=== PATIENT | male | born 2000 | race Caucasian/White ===

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

== ENCOUNTER 2023-05-17 07:56 | Inpatient (IN) | payer BC, SELFPAY ==
[2016-01-31 13:13] VITALS: O2SAT 94
[2023-05-17] VITALS (40 sets, daily range): BP systolic 104–162; BP diastolic 53–102; PULSE 55–95; RESP 6–29; TEMP 36.2–37.1; O2SAT 96–99
--- NOTE | 2023-05-17 08:15 | DI.CT_ITS ---
Exam(s) CT HEAD ORBITS WO/W EXAM: CT HEAD ORBITS WO/W CLINICAL HISTORY: Facial swelling, R/O orbital cellulitis. TECHNIQUE: Imaging Protocol: Axial computed tomography images with coronal and sagittal reformatted images were created and reviewed. 100 mL Omnipaque 350 IV. COMPARISON: No exams were available for comparison FINDINGS: CT Head: Ventricles and Extra axial spaces: Normal in size and morphology for the patient's age. Hemorrhage: None. Cerebral parenchyma: Normal. Midline shift: None. Brainstem/Cerebellum: Normal. Calvarium: Normal. Visualized Paranasal sinuses: Significant opacification both maxillary sinuses well as multiple ethmo id sinuses and sphenoid sinus. Frontal sinuses are diminutive. Mastoid air cells: Clear. Soft Tissues: Unremarkable. Bones: Unremarkable. No bony destruction. Vasculature: No growth evidence of aneurysm or vascular occlusion. No abnormal enhancing lesions in the brain. CT Face: Facial Bones: No fracture is noted in facial bones. Sinuses and Mastoids: Significant opacification both maxillary sinuses well as multiple ethmoid sinu ses and sphenoid sinus. Frontal sinuses are diminutive. Globes, extraocular muscles, optic nerves and retrobulbar fat: Normal. Upper aerodigestive tract: Normal. Mandible and bilateral temporomandibular joints: Normal. Soft tissues: Diffuse swelling around both orbits. No localized fluid collection or abscess. IMPRESSION: 1. No acute intracranial process. 2. Bilateral periorbital soft tissue swelling. No abscess or abnormal gas collection. No intraorbit al abnormality. 3. severe chronic sinus disease. RADIATION DOSE DELIVERED: 2,160.56mGy.cm Total DLP DATA REPOSITORY: All CT scans at this facility are submitted to the National Radiology Data Registry (NRDR) Dose Index Registry (DIR) with the [employer] (ACR). RADIATION OPTIMIZATION: All CT scans at this facility use at least one of these dose optimization te chniques: automated exposure control; mA and/or kV adjustment per patient size (includes targeted exa ms where dose is matched to clinical indication); or iterative reconstruction.
--- NOTE | 2023-05-17 08:19 | W.ED.GENAD ---
Discharge Plan Disposition Patient Disposition: Admit to [facility] Condition: Improving Discharge Details Clinical Impression: Cellulitis of face, Preseptal cellulitis of left eye, Preseptal cellulitis of right eye Admit Date/Time: 05/17/23 11:59 Admit Provider: Helen Tripp Attending Provider: Helen Tripp Primary Care Provider: Roxana Jacobsen ED Provider: Nguyen Montero Discharge Data Discharge Date/Time-TO BE ENTERED AT DEPARTURE: 05/17/23 15:18 Medical Decision Making <Nguyen Montero NP - Last Filed: 05/17/23 14:17> 23 year old Male presents to the chief complaint of facial swelling, rash worsening over the last 4 to 5 days. He has been on doxycycline for the last 2 days. Started with a lesion on his nose. He is unable to complete appointment in his eye. He also has a lesion in between the web of his 3rd and 4th finger. He denies any fever, chills or myalgias. Denies N/V/D. He does have periorbital swelling to the point he is unable to open his eyes. Differential Diagnosis includes but not limited to Facial Cellulitis, Orbital cellulitis, Allergic reaction, Impetigo, Lactate slightly elevated at 1.8, white blood count 11.9 neutrophils 6.26, AST 54 ALT 25, CT shows no evidence of orbital cellulitis or abscess, does have extensive Sinusitis. Will discuss option for admission with patient and family. Past medication. Offered admission to patient and family at this time. Patient opted to be discharged home. I did discuss strict return instructions and to return with any worsening anytime. Patient's swelling has improved since he has been here. He is able to open also has hands at this time. We will add Bactrim to his antibiotic regimen. I will encourage him to continue taking the doxycycline and applying the Mupirocin ointment. This text was generated using [employer]Shareation system, please disregard any oddities of phrase or misspellings. After further conversation patient is agreeable to admission. Will contact hospitalist. [phone]: Hospitalist paged. [phone]: Spoke with Dr. Tripp who agrees to accept patient for admission. Patient awaiting bed assignment. Boarding at this time. Admission orders placed. Medical Records Medical records reviewed: Yes I reviewed the patient's medical records. Imaging Data Radiologic Study: Imaging: CT Scan Radiologist's impression: CT Head: Ventricles and Extra axial spaces: Normal in size and morphology for the patient's age. Hemorrhage: None. Cerebral parenchyma: Normal. Midline shift: None. Brainstem/Cerebellum: Normal. Calvarium: Normal. Visualized Paranasal sinuses: Significant opacification both maxillary sinuses well as multiple ethmoid sinuses and sphenoid sinus. Frontal sinuses are diminutive. Mastoid air cells: Clear. Soft Tissues: Unremarkable. Bones: Unremarkable. No bony destruction. Vasculature: No growth evidence of aneurysm or vascular occlusion. No abnormal enhancing lesions in the brain. CT Face: Facial Bones: No fracture is noted in facial bones. Sinuses and Mastoids: Significant opacification both maxillary sinuses well as multiple ethmoid sinuses and sphenoid sinus. Frontal sinuses are diminutive. Globes, extraocular muscles, optic nerves and retrobulbar fat: Normal. Upper aerodigestive tract: Normal. Mandible and bilateral temporomandibular joints: Normal. Soft tissues: Diffuse swelling around both orbits. No localized fluid collection or abscess. IMPRESSION: 1. No acute intracranial process. 2. Bilateral periorbital soft tissue swelling. No abscess or abnormal gas collection. No intraorbital abnormality. 3. severe chronic sinus disease. Lab Data Lab results reviewed: Yes I reviewed the patient's lab results. Labs: 05/17/23 08:45 Blood Blood Culture - Pending 05/17/23 08:30 Hand - Right Wound Culture - Pending 05/17/23 08:30 Hand - Right Gram Stain - Pending 05/17/23 08:36 Blood Blood Culture - Pending Laboratory Tests Range/Units 05/17/23 05/17/23 05/17/23 08:36 08:36 08:36 WBC (4.4-10.8) 10^3/uL 11.26 H RBC (4.36-5.78) 10^6/uL 5.25 Hgb (13.5-17.5) g/dL 15.5 Hct (40.0-50.0) % 44.9 MCV (80-95) fL 86 MCH (27.0-33.0) pg 29.5 MCHC (32.0-36.0) % 34.5 RDW (11.8-14.1) % 13.0 Plt Count (130-400) 10^3/uL 319 MPV (8.0-11.0) fL 10.0 Immature Gran % 0.3 Neutrophils % 55.6 Lymphocytes % 27.7 Monocytes % 8.0 Eosinophils % 7.4 Basophils % 1.0 Nucleated RBC % (0.0-0.3) % 0.0 Absolute Neutrophils (1.2-6.7) 10^3/uL 6.26 Absolute Lymphocytes (1.2-3.4) 10^3/uL 3.12 Absolute Monocytes (0.1-0.8) 10^3/uL 0.90 H Absolute Eosinophils (0.0-0.7) 10^3/uL 0.83 H Absolute Basophils (0.0-0.2) 10^3/uL 0.11 VBG Lactate (0.6-1.4) mmol/L 1.8 H Sodium (136-145) mmol/L 137 Potassium (3.5-5.1) mmol/L 3.8 Chloride (98-107) mmol/L 103 Carbon Dioxide (21.0-32.0) mmol/L 25.3 Anion Gap (3-11) mmol/L 8.7 BUN (7-18) mg/dL 10 Creatinine (0.70-1.30) mg/dL 0.9 Est GFR (CKD-EPI 2020) (mL/min/1.73m2) 123.84 Glucose (74-106) mg/dL 123 H Calcium (8.5-10.1) mg/dL 9.7 Total Bilirubin (0.2-1.0) mg/dL 0.4 AST (15-37) U/L 54 H ALT (16-63) U/L 125 H Alkaline Phosphatase (46-116) U/L 97 Total Protein (6.4-8.2) g/dL 7.6 Albumin (3.4-5.0) g/dL 3.7 <Sherwin Peñaloza MD - Last Filed: 05/18/23 12:34> Date: 05/17/23 Time: 09:54 Note: Patient seen, examined, and discussed with NAZARIO Montero. Unlikely deep space infection. I am concerned that with rapid progression of facial cellulitis and now cellulitis of his right hand despite doxycycline treatment. Patient has known allergy to cephalexin which does limit antibiotic options. Patient has had similar less severe facial infection in the past. We will attempt obtain records from [facility]. Labs reviewed and leukocytosis noted with mild elevation of lactic acid. Patient is hemodynamically stable. 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 HPI <Nguyen Montero NP - Last Filed: 05/17/23 14:17> General Mode of arrival: ambulatory. Date/Time Provider Initiated Documentation: 05/17/23 07:58. Limitations to Documentation: no limitations. Information obtained by: patient, RN notes reviewed and old records reviewed. HPI Narrative: 23 year old Male presents to the chief complaint of facial swelling, rash worsening over the last 4 to 5 days. He has been on doxycycline for the last 2 days. Started with a lesion on his nose. He is unable to complete appointment in his eye. He also has a lesion in between the web of his 3rd and 4th finger. He denies any fever, chills or myalgias. Denies N/V/D. He does have periorbital swelling to the point he is unable to open his eyes. Related Data Home Medications Medication Instructions Recorded Confirmed cetirizine 10 mg capsule (Zyrtec) 10 mg PO DAILY PRN #30 tabs 10/02/14 12/02/20 doxycycline hyclate 100 mg capsule 100 mg PO BID 05/17/23 05/17/23 mupirocin 2 % topical ointment 1 applic topical DAILY 05/17/23 05/17/23 sulfamethoxazole 800 1 tab PO BID 10 days #20 tabs 05/17/23 mg-trimethoprim 160 mg tablet (Bactrim DS) Previous Rx's Medication Instructions Recorded sulfamethoxazole 800 1 tab PO BID 10 days #20 tabs 05/17/23 mg-trimethoprim 160 mg tablet (Bactrim DS) Allergies Allergy/AdvReac Type Severity Reaction Status Date / Time cephalexin Allergy Mild itchy rash Verified 05/17/23 08:05 General Stated Complaint: FacialProb GENA: 3 Review of Systems <Nguyen Montero NP - Last Filed: 05/17/23 14:17> All systems reviewed & are unremarkable except as noted in HPI and below Constitutional Constitutional: Reports as per HPI Integumentary/Breasts Skin/Breast: Reports as per HPI, Reports pruritus, Reports erythema, Reports rash, Reports skin pain, Reports skin swelling and Reports sores PFSH <Nguyen Montero NP - Last Filed: 05/17/23 14:17> All Active Problems (Updated 05/17/23 @ 19:57 by Gwendolyn Velez APRN) Sinusitis (Acute) Transaminitis (Acute) Lactic acidosis (Acute) Discharge planning issues (Acute) Cellulitis of face (Acute) Preseptal cellulitis of left eye (Acute) Preseptal cellulitis of right eye (Acute) Erysipelas (Acute) Left otitis externa (Acute) Right ankle sprain (Acute 04/21/20) Anxiety (Acute 06/21/16) BMI (body mass index) pediatric, > 99% for age, 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, tertiary care intervention (Acute 04/19/14) Cough (Acute 04/19/14) 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 Routine child health exam (Acute 05/02/12) Routine child health exam (Acute 06/21/16) Medical History 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 Appears stated age. Normal body habitus. Head: Normocephalic, no trauma. Eyes: Periorbital swelling and erythema, with yellow crusted lesions to multiple areas including mouth, nose and right cheeks, ENT: Bilateral TM's WNL, External ear normal to inspection, no mastoid TTP, swelling, or erythema, nasal turbinates boggy. Normal dentition, Posterior pharynx WNL, no exudate. Chest: RRR, Normal S1, S2, distal pulses intact. Resp: Lungs clear to auscultation bilaterally, no wheezes, rales, or rhonchi. Abdomen: Soft, non-distended, Normoactive bowel sounds all 4 quads. Musculoskeletal: Normal gait, 5/5 strength to all four extremities. Skin: A lesion noted to right hand with surrounding swelling noted. Capillary refill less than 2 sec. Neurologic: Cranial nerves II-XII intact. Alert and oriented x 3. Motor: No deficits noted. Sensory: Intact bilaterally all 4 extremities. Reflexes: DTR's intact bilaterally.. Hematologic/Lymphatic: No ecchymosis, no lymphadenopathy. Course <Nguyen Montero NP - Last Filed: 05/17/23 14:17> Vital Signs Vital signs: Vital Signs Temperature 36.7 C 05/17/23 08:01 Pulse 78 05/17/23 08:01 Respiratory Rate 16 05/17/23 08:01 Blood Pressure 162/78 H 05/17/23 08:01 Pulse Oximetry 98 05/17/23 08:01 Temperature 36.7 C 05/17/23 08:01 Temperature Source Temporal Artery Scan 05/17/23 08:01 Pulse 78 05/17/23 08:01 Respiratory Rate 16 05/17/23 08:01 Respiratory Effort Normal 05/17/23 08:03 Blood Pressure 162/78 H 05/17/23 08:01 Blood Pressure Position Sitting 05/17/23 08:01 Pulse Oximetry 98 05/17/23 08:01 Oxygen Delivery Method Room Air 05/17/23 08:01 Oxygen Flow Rate 0 05/17/23 08:01 Pain Level 5 05/17/23 08:04 Lab/Test Results Lab/Test Results: 05/17/23 08:16 Blood Blood Culture - Pending 05/17/23 08:16 Blood Blood Culture - Pending
[2023-05-17 08:43] LABS: Lactate 1.8 mmol/L (0.6-1.4)
[2023-05-17 08:44] LABS: Abs Immature Grans 0.03 10^3/uL (0.0-0.06); Absolute Basophil Count 0.11 10^3/uL (0.0-0.2); Absolute Eosinophil Count 0.83 10^3/uL (0.0-0.7); Absolute Lymphocyte Count 3.12 10^3/uL (1.2-3.4); Eosinophils % 7.4; HCT 44.9 % (40.0-50.0); HGB 15.5 g/dL (13.5-17.5); Immature Grans % 0.3; Lymphocytes % 27.7; MCH 29.5 pg (27.0-33.0); MCHC 34.5 % (32.0-36.0); MCV 86 fL (80-95); Neutrophils % 55.6; Platelet Count 319 10^3/uL (130-400); RBC 5.25 10^6/uL (4.36-5.78); RDW-SD 39.7 fL; WBC 11.26 10^3/uL (4.4-10.8)
[2023-05-17 08:45] LABS: Absolute Neutrophil Count 6.26 10^3/uL (1.2-6.7)
[2023-05-17] MEDS: Normal Saline 1,000 ML 1000 ML IV (08:57)
[2023-05-17] MEDS: CLINDAMYCIN 600 MG/50 ML BAG 100 MG IVPB (08:57)
[2023-05-17 09:01] LABS: ALT 125 U/L (16-63); AST 54 U/L (15-37); Albumin 3.7 g/dL (3.4-5.0); Alkaline Phosphatase 97 U/L (46-116); Anion Gap 8.7 mmol/L (3-11); BUN 10 mg/dL (7-18); Bilirubin, Total 0.4 mg/dL (0.2-1.0); CO2 25.3 mmol/L (21.0-32.0); CREATININE 0.9 mg/dL (0.70-1.30); Calcium 9.7 mg/dL (8.5-10.1); Chloride 103 mmol/L (98-107); Estimated GFR 123.84 (mL/min/1.73m2); Glucose 123 mg/dL (74-106); Potassium 3.8 mmol/L (3.5-5.1); Sodium 137 mmol/L (136-145); Total Protein 7.6 g/dL (6.4-8.2)
[2023-05-17] MEDS: Omnipaque 350 MG/ML 500 ML BTL-Imaging package IJ (09:27)
[2023-05-17] MEDS: Normal Saline - Diluent 50 ML VIAL IJ (09:27)
[2023-05-17] MEDS: Normal Saline Flush 10 ML SYR IVP (09:30)
[2023-05-17 10:29] LABS: Bilirubin Negative (Negative); Blood Negative (Negative); Clarity Clear (Clear); Glucose Negative (Negative); Ketones Negative (Negative); Leukocyte Esterase Negative (Negative); Nitrite Negative (Negative); Urobilinogen 0.2 mg/dL (Up to 0.2)
[2023-05-17] MEDS: Sulfameth/Trimeth DS TAB 1 TAB PO (10:50)
[2023-05-17] MEDS: cefTRIAXone 2 GM/50 ML BAG IVPB (13:35)
[2023-05-17] MEDS: LINEZOLID 600 MG/300 ML BAG 300 MG IVPB ×2 (13:44→23:14)
[2023-05-17 15:16] LABS: Source Nasal/Nares
[2023-05-17 15:47] LABS: COVID-19 PCR Negative (Negative)
--- NOTE | 2023-05-17 18:24 | W.PM.HP.N ---
Date of service: 05/17/23 Time of Service: 11:55 Assessment and Plan Assessment and plan (1) Preseptal cellulitis of left eye: Status: Acute Assessment and plan: We will Start Ceftriaxone 2gm IV every 24 hours and Zyvox 600 mg IV every 12 hours Pain management Acetaminophen 650 mg every 4 hours as needed Repeat inflammatory markers in AM. CBC in AM BMP in AM (2) Preseptal cellulitis of right eye: Status: Acute Assessment and plan: As above (3) Sinusitis: Status: Acute Assessment and plan: As per CT scan Antibiotics ordered as above (4) Lactic acidosis: Status: Acute Assessment and plan: Lactate is 1.8, afebrile We will order IVF Antibiotics as above (5) Transaminitis: Status: Acute Assessment and plan: Elevated LFT's We will check hepatitis studies and order a limited of the RUQ od the abdomen US LFT's in AM (6) Discharge planning issues: Status: Acute Assessment and plan: The patient is independent and does not seem to have any discharge need at this time. Care management will monitor for change in need for discharge The patient has minimal risk 0-3 points on DVT prophylaxis is not indicated History of Present Illness History of Present Illness Chief Complaint: Face swelling and rash Narrative: The 23 yo male with a history of herpetic lesion is childhood 10 years ago to left cheek, facial cellulitis 2 years ago and impetigo to the left nostril treated with bactroban and oral doxycycline 2 days ago presented to the ED at [facility] today with bilateral periorbital swelling and rash to his face . When seen, the patient was unable to open his eyes and also had a lesion to his left hand between his 3 rd and 4th digit which was swabbed and came back positive for gram positive namrata, gram positive cocci and gram negative rods. Blood culture results are pending. The CT of the head and face showed no acute intracranial process, bilateral soft tissue swelling. NO abscess or gas collection, no intraorbital abnormalit seen but shows severe chronic sinus disease.WBC was 11.26, chemistry was unremarkable except for lactate 1.8 and increased LFT's.He denied fever, headache, pain, difficulty breathing, nausea, vomiting, chest pain. He reports blurred vision in his right eyes that is completely closed.The patient received IV clindamycin and oral bactrim as well as methylprednisolone IV in the ED. The hsopitalist was consulted and the patient was admitted to the medical surgical floor as an inpatient for treatment and management of bilateral periorbital cellulitis. Review of Systems Constitutional Constitutional: Reports as per HPI, Denies body ache(s), Denies chills, Denies excessive sweating, Denies fever(s) and Denies headache(s) Eyes Eyes: Reports blurry vision, Reports change in vision, Reports eye discharge, Reports dry eyes, Reports irritation and Denies loss of vision ENT Ears, Nose, Mouth, and Throat: Reports system reviewed and no additional complaints, except as documented, Denies change in voice, Denies dysphagia, Denies dizziness, Denies otalgia, Denies facial pain, Denies headache(s), Denies epistaxis, Denies nasal congestion, Denies nasal discharge, Denies nasal obstruction, Denies neck pain, Denies nose pain and Denies odynophagia Cardiovascular Cardiovascular: Reports system reviewed and no additional complaints, except as documented, Denies chest pain, Denies chest pain at rest and Denies chest pain with activity Respiratory Respiratory: Reports system reviewed and no additional complaints, except as documented, Denies chest congestion and Denies cough Gastrointestinal Gastrointestinal: Denies abdominal pain, Denies dysphagia and Denies odynophagia Genitourinary Genitourinary: Reports system reviewed and no additional complaints, except as documented and Denies difficulty urinating Musculoskeletal Musculoskeletal: Reports system reviewed and no additional complaints, except as documented, Denies back pain, Denies myalgias, Denies arthralgias and Denies neck pain Integumentary/Breasts Skin/Breast: Reports system reviewed and no additional complaints, except as documented Neurologic Neurologic: Reports system reviewed and no additional complaints, except as documented, Denies dizziness, Denies headache(s) and Denies loss of vision Psychiatric Psychiatric: Reports system reviewed and no additional complaints, except as documented Endocrine Endocrine: Reports system reviewed and no additional complaints, except as documented, Reports change in body appearance and Denies excessive sweating Hematologic/Lymphatic Hematologic/Lymphatic: Reports system reviewed and no additional complaints, except as documented and Reports as per HPI Allergic/Immunologic Allergic/Immunologic: Reports system reviewed and no additional complaints, except as documented and Reports other (rash and peroorbital swelling) PFSH All Active Problems (Updated 10/03/23 @ 19:57 by Gwendolyn Velez APRN) Sinusitis (Acute) Transaminitis (Acute) Lactic acidosis (Acute) Discharge planning issues (Acute) Cellulitis of face (Acute) Preseptal cellulitis of left eye (Acute) Preseptal cellulitis of right eye (Acute) Erysipelas (Acute) Left otitis externa (Acute) Right ankle sprain (Acute 04/21/20) Anxiety (Acute 06/21/16) BMI (body mass index) pediatric, > 99% for age, 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, tertiary care intervention (Acute 04/19/14) Cough (Acute 04/19/14) 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 Routine child health exam (Acute 05/02/12) Routine child health exam (Acute 06/21/16) Medical History 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 Meds Allergies and Home Medications Allergies Allergy/AdvReac Type Severity Reaction Status Date / Time cephalexin Allergy Mild itchy rash Verified 05/17/23 08:05 Home Medications Medication Instructions Recorded Confirmed Type cetirizine 10 mg capsule (Zyrtec) 10 mg PO DAILY PRN #30 tabs 10/02/14 12/02/20 History doxycycline hyclate 100 mg capsule 100 mg PO BID 05/17/23 05/17/23 History mupirocin 2 % topical ointment 1 applic topical DAILY 05/17/23 05/17/23 History sulfamethoxazole 800 1 tab PO BID 10 days #20 tabs 05/17/23 Rx mg-trimethoprim 160 mg tablet (Bactrim DS) Exam Const General: cooperative, comfortable and no acute distress Orientation: alert, awake and oriented x3 Limitations: mental status not altered HENMT Head: normal to inspection and normocephalic Face and sinus: erythema bilaterally periorbital, mandible, lower lip and chin and edema bilaterally periorbital Eyes General: dysmorphic (right swelling> left) Conjunctivae: conjunctivae normal (not hemorrhagic,difficulty assessing) Sclera: sclerae normal (difficulty opening the eyes) Neck Neck: normal visual inspection Chest Chest: normal inspection of the chest Resp Effort & Inspection: normal respiratory effort and not labored Auscultation: clear to auscultation bilaterally Cardio Jugular venous pressure: no JVD Rhythm: regular rhythm Heart Sounds: S1 normal and S2 normal Pulses: radial pulses present and dorsalis pedis present GI Inspection: obesity Palpation: soft and nontender Skin Lesions: lesion noted (bilateral periorbital, right chin, left nostril ) Rashes: rashes noted (bilateral periorbital, right chin, left nostril) Neuro General: patient alert, patient awake, patient oriented x3 and no focal motor deficits Cognition: normal cognition Speech: speech normal Extrem General: normal to inspection and no pedal edema Right upper extremity: normal to inspection Left upper extremity: normal to inspection Right lower extremity: normal to inspection Left lower extremity: normal to inspection Psych Appearance: grossly normal Mental Status: mental status grossly normal Speech and Movement: speech and movement normal Mood: congruent mood Affect: normal affect Attitude: cooperative Thought Process: normal Insight: fair Judgment: fair Results Labs 05/17/23 08:36 05/17/23 08:36 Labs: Laboratory Results - last 24 hr 05/17/23 05/17/23 05/17/23 08:36 08:36 08:36 WBC 11.26 H RBC 5.25 Hgb 15.5 Hct 44.9 MCV 86 MCH 29.5 MCHC 34.5 RDW 13.0 Plt Count 319 MPV 10.0 Immature Gran % 0.3 Neutrophils % 55.6 Lymphocytes % 27.7 Monocytes % 8.0 Eosinophils % 7.4 Basophils % 1.0 Nucleated RBC % 0.0 Absolute Neutrophils 6.26 Absolute Lymphocytes 3.12 Absolute Monocytes 0.90 H Absolute Eosinophils 0.83 H Absolute Basophils 0.11 VBG Lactate 1.8 H Sodium 137 Potassium 3.8 Chloride 103 Carbon Dioxide 25.3 Anion Gap 8.7 BUN 10 Creatinine 0.9 Est GFR (CKD-EPI 2020) 123.84 Glucose 123 H Calcium 9.7 Total Bilirubin 0.4 AST 54 H ALT 125 H Alkaline Phosphatase 97 Total Protein 7.6 Albumin 3.7 Urine Color Urine Clarity Urine pH Ur Specific [place] Urine Protein Urine Ketones Urine Blood Urine Nitrite Urine Bilirubin Urine Urobilinogen Ur Leukocyte Esterase Urine Glucose COVID-19 Source SARS-CoV-2 (PCR) 05/17/23 05/17/23 10:15 15:08 WBC RBC Hgb Hct MCV MCH MCHC RDW Plt Count MPV Immature Gran % Neutrophils % Lymphocytes % Monocytes % Eosinophils % Basophils % Nucleated RBC % Absolute Neutrophils Absolute Lymphocytes Absolute Monocytes Absolute Eosinophils Absolute Basophils VBG Lactate Sodium Potassium Chloride Carbon Dioxide Anion Gap BUN Creatinine Est GFR (CKD-EPI 2020) Glucose Calcium Total Bilirubin AST ALT Alkaline Phosphatase Total Protein Albumin Urine Color Yellow Urine Clarity Clear Urine pH 6.0 Ur Specific [place] 1.010 Urine Protein Negative Urine Ketones Negative Urine Blood Negative Urine Nitrite Negative Urine Bilirubin Negative Urine Urobilinogen 0.2 Ur Leukocyte Esterase Negative Urine Glucose Negative COVID-19 Source Nasal/Nares SARS-CoV-2 (PCR) Negative Last Vital Signs Temp 37.1 C 05/17/23 15:50 Pulse 63 05/17/23 15:50 Resp 18 05/17/23 15:50 BP 132/82 05/17/23 15:50 Pulse Ox 97 05/17/23 15:50 PAWSS Pt Consumed Any Amount of Alcohol Within the Last 30 days OR had positive SAIMA Upon Admission: No Time Spent Time spent with Patient: >75 minutes Time was spent: preparing to see the patient(eg.review tests), obtaining and/or reviewing separately otained hiistory, ordering medications,tests, procedures, referring, communicating with other health day care home provider, indepentently interpreting results, counseling the patient and care coordination
[2023-05-17] MEDS: Lactated Ringers 1,000 ML 100 ML IV (23:05)
--- NOTE | 2023-05-18 | DI.US_ITS ---
Exam(s) US ABDOMEN LIMITED EXAM: US ABDOMEN LIMITED CLINICAL HISTORY: US RUQ: transaminitis, lactic acidosis TECHNIQUE: Ultrasound abdomen performed using standard protocol. COMPARISON: No exams were available for comparison FINDINGS: There is no ascites evident. LIVER: Liver is hyperechoic indicating steatosis. No discrete focal hepatic lesions evident. Liver size is slightly prominent. GALLBLADDER/BILIARY: There are no gallstones. No gallbladder wall edema nor pericholecystic fluid. The common hepatic duct isdilated, measuring 9mm at the level of araceli hepatis. PANCREAS: Obscured by overlying bowel gas. Not well seen. RIGHT KIDNEY:No evidence of solid mass, calculus, nor hydronephrosis. No cortical cysts evident. IMPRESSION: 1. No evidence of cholelithiasis. No gallbladder wall edema. The gallbladder is not distended. Ho wever, the common hepatic duct appears dilated, measuring 9 mm at the level the araceli hepatis. Were not able to visualize lower CBD because of overlying bowel gas. 2. Hepatic steatosis and mild hepatomegaly. No discrete focal hepatic lesions evident. 3. Pancreas not able to be adequately visualized due to overlying bowel gas. 4. No ascites evident. DATA REPOSITORY:
[2023-05-18 03:13] VITALS: BP 115/70; PULSE 63; RESP 18; TEMP 36.4; O2SAT 100
[2023-05-18 07:38] LABS: Lab Add On Test DONE
[2023-05-18 07:52] LABS: Abs Immature Grans 0.02 10^3/uL (0.0-0.06); Absolute Basophil Count 0.07 10^3/uL (0.0-0.2); Absolute Eosinophil Count 0.78 10^3/uL (0.0-0.7); Absolute Monocyte Count 0.75 10^3/uL (0.1-0.8); Absolute Neutrophil Count 5.27 10^3/uL (1.2-6.7); Basophils % 0.7; Eosinophils % 7.8; HCT 43.2 % (40.0-50.0); HGB 15.1 g/dL (13.5-17.5); Immature Grans % 0.2; MCH 29.5 pg (27.0-33.0); MCV 85 fL (80-95); MPV 9.8 fL (8.0-11.0); Monocytes % 7.5; Neutrophils % 52.8; Platelet Count 304 10^3/uL (130-400); RBC 5.11 10^6/uL (4.36-5.78); RDW 12.7 % (11.8-14.1); RDW-SD 39.4 fL; WBC 9.99 10^3/uL (4.4-10.8)
[2023-05-18 08:00] VITALS: BP 115/74; PULSE 65; RESP 14; TEMP 36.2; O2SAT 97
[2023-05-18 08:11] LABS: C-Reactive Protein 0.38 mg/dL (0.0-0.3)
[2023-05-18 08:25] LABS: Procalcitonin < 0.1 ng/mL
[2023-05-18 08:27] LABS: ALT 116 U/L (16-63); AST 49 U/L (15-37); Albumin 3.4 g/dL (3.4-5.0); Alkaline Phosphatase 85 U/L (46-116); Anion Gap 11.5 mmol/L (3-11); BUN 6 mg/dL (7-18); Bilirubin, Total 0.4 mg/dL (0.2-1.0); CO2 23.5 mmol/L (21.0-32.0); CREATININE 0.9 mg/dL (0.70-1.30); Calcium 9.4 mg/dL (8.5-10.1); Chloride 103 mmol/L (98-107); Estimated GFR 123.84 (mL/min/1.73m2); Glucose 117 mg/dL (74-106); Magnesium 1.9 mg/dL (1.8-2.4); Potassium 3.7 mmol/L (3.5-5.1); Sodium 138 mmol/L (136-145); Total Protein 7.2 g/dL (6.4-8.2)
[2023-05-18] MEDS: Lactated Ringers 1,000 ML 100 ML IV (09:03)
--- NOTE | 2023-05-18 11:21 | PGE_ITS ---
Date of Service Date of service: 05/18/23 Time of Service: 10:30 Assessment and Plan Assessment and plan (1) Preseptal cellulitis of left eye: Status: Acute Assessment and plan: Ceftriaxone 2gm IV every 24 hours and Zyvox 600 mg IV every 12 hours started on 05/17; will continue treatment for at least 3 to five days and adjust as per micro results Criteria for ora therapy are normothermia, and resolution of clinical symptoms. Consideration given to the minimal treatment duration for chronic sinusitis - antibiotherapy for a minimum of 7 days Probiotic added to treatment plan Will refer to outpatient ENT follow up We will continue pain management with acetaminophen 650 mg every 4 hours as needed WBC is 9.9, CRP 0.38, procalcitonin 0.1 today, we will keep monitoring inflammatory markers CBC, CRP in AM Glocuse 123 05/17 and 117 fasting today, HbgA1C added to AM labs BMP in AM (2) Preseptal cellulitis of right eye: Status: Acute Assessment and plan: As above (3) Sinusitis: Status: Acute Assessment and plan: As per CT scan ENT follow up as outpatient Antibiotics ordered as above (4) Lactic acidosis: Status: Acute Assessment and plan: Lactate 2.0 was 1.8 on 05/17 afebrile IVF completed for 1 liter, see hepatic inquiry in transaminitis section below Antibiotics as above, blood cultures showed no growth in 24 hours Lactate in AM (5) Transaminitis: Status: Acute Assessment and plan: Elevated LFT's AST 49, was 54 ALT 116 was 125, will repeat in AM Hepatitis studies added 05/[address] Tripp. Limited US of the RUQ of the abdomen completed 05/18, -Findings:No ascites; common hepatic duct appears dilated, measuring 9 mm at the level the araceli hepatis no visualization of lower CBD and pancreas because of overlying bowel gas. Rhabdomyolysis due to muscle fiber break down in the context for facial structures infection, could also drive the LFT's increase. Add on CPK to morning labs LFT's in AM (6) Discharge planning issues: Status: Acute Assessment and plan: The patient is independent and does not seem to have any discharge need at this time. Care management will monitor for change in need for discharge The patient has minimal risk for DVT DVT prophylaxis is not indicated Subjective Subjective Interval history since last seen: The patient is in bed comfortable, slept well and ate well. The patient denies facial pain or discomfort, nasal or occular discharge, fever, chills , night sweats, nausea, abdominal pain or dysuria, THe patient reports being able to open both eyes and no further blurry vision.The patient was made aware of the treatment plan and agrees. Exam Const General: cooperative, comfortable and no acute distress Orientation: alert, awake and oriented x3 HENMT Head: normal to inspection and normocephalic Face and sinus: erythema bilaterally periorbital, mandible, lower lip and chin and edema bilaterally periorbital Eyes General: dysmorphic (bilateral swelling and rash, improved) Alignment and Position: alignment normal Periorbital: periorbital findings normal and periorbital findings abnormal bilaterally periorbital swelling and periorbital erythema Eyelids: eyelid abnormality (bilateral swelling ) right upper eyelid, right lower eyelid, left upper eyelid and left lower eyelid Conjunctivae: conjunctivae normal (not hemorrhagic,difficulty assessing) Sclera: sclerae normal (difficulty opening the eyes) EOM: EOM intact bilaterally Neck Neck: normal visual inspection Chest Chest: normal inspection of the chest Resp Effort & Inspection: normal respiratory effort Auscultation: clear to auscultation bilaterally Cardio Jugular venous pressure: no JVD Rhythm: regular rhythm Heart Sounds: S1 normal and S2 normal Pulses: radial pulses present and dorsalis pedis present GI Inspection: obesity Palpation: soft and nontender Skin Lesions: lesion noted (bilateral periorbital, right chin, left nostril ) Rashes: rashes noted (bilateral periorbital, right chin, left nostril) Neuro General: patient alert, patient awake, patient oriented x3 and no focal motor deficits Cognition: normal cognition Speech: speech normal Extrem General: normal to inspection and no pedal edema Right upper extremity: hand Details: other (lesion between 4th and 5th digit) Right lower extremity: normal to inspection and foot (Thickened nails) Left lower extremity: normal to inspection and foot (thickened nails) Psych Appearance: grossly normal Mental Status: mental status grossly normal Speech and Movement: speech and movement normal Mood: congruent mood Affect: normal affect Attitude: cooperative Thought Process: normal Insight: fair Judgment: fair Objective Last Vital Signs Temp 36.2 C L 05/18/23 08:00 Pulse 65 05/18/23 08:00 Resp 14 05/18/23 08:00 BP 115/74 10/04/23 08:00 Pulse Ox 97 05/18/23 08:00 Laboratory Results - last 24 hr 05/17/23 05/17/23 05/18/23 15:08 20:08 07:35 WBC RBC Hgb Hct MCV MCH MCHC RDW Plt Count MPV Immature Gran % Neutrophils % Lymphocytes % Monocytes % Eosinophils % Basophils % Nucleated RBC % Absolute Neutrophils Absolute Lymphocytes Absolute Monocytes Absolute Eosinophils Absolute Basophils VBG Lactate Sodium 138 Potassium 3.7 Chloride 103 Carbon Dioxide 23.5 Anion Gap 11.5 H BUN 6 L Creatinine 0.9 Est GFR (CKD-EPI 2020) 123.84 Glucose 117 H Calcium 9.4 Magnesium 1.9 Total Bilirubin Cancelled 0.4 Conjugated Bilirubin Cancelled AST Cancelled 49 H ALT Cancelled 116 H Alkaline Phosphatase Cancelled 85 C-Reactive Protein Total Protein Cancelled 7.2 Albumin Cancelled 3.4 Procalcitonin COVID-19 Source Nasal/Nares SARS-CoV-2 (PCR) Negative Add-On Test Request 05/18/23 05/18/23 05/18/23 07:35 07:35 07:35 WBC 9.99 RBC 5.11 Hgb 15.1 Hct 43.2 MCV 85 MCH 29.5 MCHC 35.0 RDW 12.7 Plt Count 304 MPV 9.8 Immature Gran % 0.2 Neutrophils % 52.8 Lymphocytes % 31.0 Monocytes % 7.5 Eosinophils % 7.8 Basophils % 0.7 Nucleated RBC % 0.0 Absolute Neutrophils 5.27 Absolute Lymphocytes 3.10 Absolute Monocytes 0.75 Absolute Eosinophils 0.78 H Absolute Basophils 0.07 VBG Lactate 2.0 H Sodium Potassium Chloride Carbon Dioxide Anion Gap BUN Creatinine Est GFR (CKD-EPI 2020) Glucose Calcium Magnesium Total Bilirubin Conjugated Bilirubin AST ALT Alkaline Phosphatase C-Reactive Protein 0.38 H Total Protein Albumin Procalcitonin COVID-19 Source SARS-CoV-2 (PCR) Add-On Test Request 05/18/23 05/18/23 05/18/23 07:35 07:36 Unknown WBC RBC Hgb Hct MCV MCH MCHC RDW Plt Count MPV Immature Gran % Neutrophils % Lymphocytes % Monocytes % Eosinophils % Basophils % Nucleated RBC % Absolute Neutrophils Absolute Lymphocytes Absolute Monocytes Absolute Eosinophils Absolute Basophils VBG Lactate Sodium Potassium Chloride Carbon Dioxide Anion Gap BUN Creatinine Est GFR (CKD-EPI 2021) Glucose Calcium Magnesium Total Bilirubin Cancelled Conjugated Bilirubin Cancelled AST Cancelled ALT Cancelled Alkaline Phosphatase Cancelled C-Reactive Protein Total Protein Cancelled Albumin Cancelled Procalcitonin < 0.1 COVID-19 Source SARS-CoV-2 (PCR) Add-On Test Request DONE PAWSS Pt Consumed Any Amount of Alcohol Within the Last 30 days OR had positive SAIMA Upon Admission: No Time Spent with Patient Time Spent with Patient: >50 minutes Time was spent: preparing to see the patient(eg.review tests), ordering medications,tests, procedures, referring, communicating with other health healthcare financial analyst, indepentently interpreting results, counseling the patient and care coordination
[2023-05-18 11:30] VITALS: BP 124/80; PULSE 70; RESP 18; TEMP 36.6; O2SAT 98
[2023-05-18] MEDS: cefTRIAXone 2 GM/50 ML BAG IVPB (12:00)
[2023-05-18] MEDS: LINEZOLID 600 MG/300 ML BAG 300 MG IVPB (12:00)
--- NOTE | 2023-05-18 13:23 | PHA.REVIEW2 ---
Pharmacy Admission Review Admission Clinical Review Admission Pharmacy Review: (Updated 05/17/23 @ 19:57 by Gwendolyn Velez APRN) Sinusitis (Acute) Transaminitis (Acute) Lactic acidosis (Acute) Discharge planning issues (Acute) Cellulitis of face (Acute) Preseptal cellulitis of left eye (Acute) Preseptal cellulitis of right eye (Acute) cephalexin Allergy (Mild, Verified 05/17/23 08:05) itchy rash Resuscitation Status Full Code Height 5 ft 6 in Comments Comments/Follow Ups: Watch VS, labs, for culture results and for med changes. Pharmacy Admission Review Renal Dosing Renal Dosing: BUN 6 mg/dL (7-18) L 05/18/23 07:35 Creatinine 0.9 mg/dL (0.70-1.30) 05/18/23 07:35 Medications needing adjustments: Reviewed (Crcl ~157.6 mL/min) Anticoagulation Anticoagulation: Hgb 15.1 g/dL (13.5-17.5) 05/18/23 07:35 Hct 43.2 % (40.0-50.0) 05/18/23 07:35 Plt Count 304 10^3/uL (130-400) 05/18/23 07:35 Creatinine 0.9 mg/dL (0.70-1.30) 05/18/23 07:35 DVT Prophylaxis: Reviewed (not indicated due to minimal risk per H&P) Opiate Usage Evaluate Pain Scale/Pains Meds: N/A Relevant Labs Relevant Labs: Sodium 138 mmol/L (136-145) 05/18/23 07:35 Potassium 3.7 mmol/L (3.5-5.1) 05/18/23 07:35 Chloride 103 mmol/L (98-107) 05/18/23 07:35 Magnesium 1.9 mg/dL (1.8-2.4) 05/18/23 07:35 C-Reactive Protein 0.38 mg/dL (0.0-0.3) H 05/18/23 07:35 Electrolytes, C-Reactive P, ESR: Reviewed DM Control DM Control: Reviewed (No DM noted in pt's medical history, previous A1c from 2017) Cardiac Review BP, HR, EF%: Reviewed QTc Review QTc: N/A IV to PO Switch IV Medications: Reviewed Home Meds Home Med List reviewed: Reviewed Relevent Home Meds Not ordered & why?: doxy and bactrim- has other abx ordered; mupirocin, cetirizine (PRN) Current Meds Current Medication Order Review: Intervened (Discontinued duplicate medication orders and DI meds that had already been given. Talked to provider about initial antibiotic choice given indication and an allergy noted in the pt's chart.) Pharmacy Antibiotic Review Relevant Labs: Relevant Labs 05/18/23 05/18/23 07:35 07:35 C-Reactive Protein 0.38 H Procalcitonin < 0.1 Pharmacy Antibiotic Activity: C/S review and Reviewed, no change Comments: Blood cultures no growth @24hours. Wound culture pending, gram stain notes mix of bacteria. Linezolid and ceftriaxone continue for preseptal cellulitis of the eye (day 2). Comments Comments/Follow Ups: Watch VS, labs, for culture results and for med changes.
[2023-05-18 15:20] VITALS: BP 139/75; PULSE 77; RESP 20; TEMP 37.1; O2SAT 96
--- NOTE | 2023-05-18 16:10 | PDOC.CMIN ---
Date of service: 05/18/23 Time of Service: 16:10 Care Management Initial Assmt Initial Assessment REASON FOR HOSPITALIZATION:: Bilateral periorbital cellulitis PREVIOUS FUNCTIONAL STATUS/SOCIAL/FAMILY SUPPORTS:: Resides in [facility] with parents, independent at baseline CURRENT FUNCTIONAL STATUS:: Per provider: Ceftriaxone 2gm IV every 24 hours and Zyvox 600 mg IV every 12 hours, Pain management Acetaminophen 650 mg every 4 hours as needed ADVANCE DIRECTIVES:: None on file INSURANCE COVERAGE / FINANCIAL ISSUES:: BC/BS Other PRIMARY CARE PHYSICIAN:: Roxana Jacobsen POTENTIAL DISCHARGE NEEDS:: Follow up appointments PATIENT/FAMILY EDUCATION NEEDS:: Review discharge instructions, discuss Ask Me Three. ANTICIPATED BARRIERS TO DISCHARGE:: Need for IV ABX TRANSPORTATION:: Via private vehicle with mother PLAN:: Zeeshan continues to be closely monitored and remains on IV ABX, anticipate he will remain at [facility] for the next 3-5 days for treatment, while antibiotic therapy and treatment plan is determined. CM continues to follow. 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, tertiary care intervention (Acute 04/19/14) Cough (Acute 04/19/14) 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 Routine child health exam (Acute 05/02/12) Routine child health exam (Acute 06/21/16) Medical History 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
[2023-05-18 17:33] LABS: MRSA PCR Negative (Negative)
[2023-05-18 20:09] VITALS: BP 127/73; PULSE 72; RESP 16; TEMP 37.3; O2SAT 95
[2023-05-18 23:39] VITALS: BP 123/77; PULSE 84; RESP 16; TEMP 36.5; O2SAT 98
--- NOTE | 2023-05-19 | DI.RAD_ITS ---
Exam(s) XR HAND RT COMPLETE EXAM: XR HAND RT COMPLETE CLINICAL HISTORY: ?abscess. TECHNIQUE: 2D digital imaging was performed. COMPARISON: No exams were available for comparison FINDINGS: 3 views There is soft tissue swelling. There is skin and subcutaneous irregularity on the lateral aspect of the base of the 4th finger. No evidence of fracture nor dislocation. No radiopaque foreign body. N o osseous lesions. No evidence of osteomyelitis. No erosions. IMPRESSION: Soft tissue findings and swelling as above.. No significant osseous findings. DATA REPOSITORY: RADIATION DOSE DELIVERED:
[2023-05-19] MEDS: LINEZOLID 600 MG/300 ML BAG 300 MG IVPB (00:20)
[2023-05-19 04:53] VITALS: BP 128/76; PULSE 72; RESP 16; TEMP 36.5; O2SAT 98
[2023-05-19 07:41] VITALS: BP 133/79; PULSE 69; RESP 19; TEMP 34.7; O2SAT 95
[2023-05-19 08:03] LABS: Abs Immature Grans 0.03 10^3/uL (0.0-0.06); Absolute Basophil Count 0.09 10^3/uL (0.0-0.2); Absolute Eosinophil Count 0.69 10^3/uL (0.0-0.7); Absolute Lymphocyte Count 3.59 10^3/uL (1.2-3.4); Absolute Monocyte Count 0.81 10^3/uL (0.1-0.8); Absolute Neutrophil Count 6.64 10^3/uL (1.2-6.7); Basophils % 0.8; Eosinophils % 5.8; HCT 44.2 % (40.0-50.0); HGB 15.5 g/dL (13.5-17.5); Immature Grans % 0.3; Lymphocytes % 30.3; MCH 29.8 pg (27.0-33.0); MCHC 35.1 % (32.0-36.0); MCV 85 fL (80-95); MPV 10.2 fL (8.0-11.0); Monocytes % 6.8; Platelet Count 309 10^3/uL (130-400); RBC 5.21 10^6/uL (4.36-5.78); RDW 12.8 % (11.8-14.1); RDW-SD 38.9 fL; WBC 11.86 10^3/uL (4.4-10.8)
[2023-05-19 08:17] LABS: BUN 11 mg/dL (7-18); C-Reactive Protein 0.43 mg/dL (0.0-0.3); Calcium 9.5 mg/dL (8.5-10.1); Chloride 102 mmol/L (98-107); Estimated GFR 109.13 (mL/min/1.73m2); Glucose 120 mg/dL (74-106); Magnesium 2.1 mg/dL (1.8-2.4); Sodium 138 mmol/L (136-145)
--- NOTE | 2023-05-19 09:15 | W.PM.PROGNOT ---
Date of Service Date of service: 05/19/23 Time of Service: 09:15 Assessment and Plan Assessment and plan (1) Preseptal cellulitis of left eye: Status: Acute Assessment and plan: Continue Ceftriaxone 2gm IV every 24 hours and Zyvox 600 mg IV every 12 hours started on 05/17; will continue treatment for at least 3 to five days and adjust as per micro results. Zyvox stopped today -Criteria for oral therapy are normothermia, and resolution of clinical symptoms. -Consideration given to the minimal duration of antibiotherapy for chronic sinusitis for a minimum of 7 days -Probiotic added to treatment plan The patient has groub B strep growing from the wound culture on his hand: Discussed with pharmacy and Dr. Tripp-Anitbiotic stewardship with increased inflammatory markers Will investigate for abscess formation and complication such as diarrhea: stool for C-Diff ordered Refered to outpatient ENT follow up We will continue pain management with acetaminophen 650 mg every 4 hours as needed WBC is 11.86 from 9.9, CRP 0.47 from 0.38, procalcitonin 0.1 on 05/18y, we will keep monitoring inflammatory markers Increased inflammation, redness, drainage and decreased ROM : Orthopedic consult with Dr. Harris ordered. CBC, CRP in AM Glucose 123 05/17 and 120 fasting today, HbgA1C 6.0 BMP in AM (2) Preseptal cellulitis of right eye: Status: Acute Assessment and plan: As above (3) Sinusitis: Status: Acute Assessment and plan: Continue the same management As per CT scan ENT follow up as outpatient Antibiotics ordered as above (4) Lactic acidosis: Status: Acute Assessment and plan: Lactate 2.0 was 2.0 on 05/18, afebrile IVF completed for 1 liter, see hepatic inquiry in transaminitis section Antibiotics as above, blood cultures showed no growth in 24 hours (5) Transaminitis: Status: Acute Assessment and plan: Elevated LFT's AST 49, was 54 ALT 116 was 125, will repeat in AM Hepatitis studies added 05/[address] Tripp. Limited US of the RUQ of the abdomen completed 05/18, -Findings:Liver is hyperechoic indicating steatosis, no ascites; common hepatic duct appears dilated, measuring 9 mm at the level the araceli hepatis no visualization of lower CBD and pancreas because of overlying bowel gas. Will not follow further LFT's unless a change in the clinical picture occurs Rhabdomyolysis due to muscle fiber break down in the context for facial structures infection, could also drive the LFT's increase. CPK was 57 on 05/19 (6) Prediabetes: Status: Acute Assessment and plan: The patients morning fasting morning glucose > 100 to 125 A1C is 6.0 today We will change is diet to diabetes consistent CHO Get a nutrition consult Get diabetic consult Education of lifestyle changes Follow-up with PCP on discharge (7) Discharge planning issues: Status: Acute Assessment and plan: The patient is independent and does not seem to have any discharge need at this time. Care management will monitor for change in need for discharge Nutrion and diabetic consults as outpatient The patient has minimal risk for DVT DVT prophylaxis is not indicated Subjective Subjective Interval history since last seen: The patient is in bed comfortable, slept well and ate well, ambulating to chair independently. The patient denies chills, night sweats, facial pain or discomfort, nasal or occular discharge, nausea, abdominal pain or dysuria. The patient reports increased right hand pain mostly localized to 3rd and fourth nuckles, and decreased ROM, unable top make a fist.The patient reports being able to open both eyes and no change in vision.The patient was made aware of the treatment plan and agrees. Exam Const General: cooperative and no acute distress Orientation: alert, awake and oriented x3 HENMT Head: normal to inspection and normocephalic Face and sinus: erythema bilaterally periorbital, mandible, lower lip and chin and edema bilaterally periorbital Eyes General: dysmorphic (bilateral swelling and rash, improved) Alignment and Position: alignment normal Periorbital: periorbital findings normal and periorbital findings abnormal bilaterally periorbital swelling and periorbital erythema Eyelids: eyelid abnormality (bilateral swelling ) right upper eyelid, right lower eyelid, left upper eyelid and left lower eyelid Conjunctivae: conjunctivae normal (not hemorrhagic,difficulty assessing) Sclera: sclerae normal (difficulty opening the eyes) EOM: EOM intact bilaterally Neck Neck: normal visual inspection Chest Chest: normal inspection of the chest Resp Effort & Inspection: normal respiratory effort Auscultation: clear to auscultation bilaterally Cardio Rhythm: regular rhythm Heart Sounds: S1 normal and S2 normal Pulses: radial pulses present and dorsalis pedis present GI Inspection: obesity Palpation: soft and nontender Skin Lesions: lesion noted (bilateral periorbital, right chin, left nostril ) Rashes: rashes noted (bilateral periorbital, right chin, left nostril) Neuro General: patient alert, patient oriented x3 and no focal motor deficits Cognition: normal cognition Speech: speech normal Extrem General: normal to inspection and no pedal edema Right upper extremity: hand Details: other (lesion between3 rd and 4th digit, increased pain swelling drainage) Psych Appearance: grossly normal Mental Status: mental status grossly normal Speech and Movement: speech and movement normal Mood: congruent mood Affect: normal affect Attitude: cooperative Thought Process: normal Insight: fair Judgment: fair Objective Last Vital Signs Temp 34.7 C L 05/19/23 07:41 Pulse 69 05/19/23 07:41 Resp 19 05/19/23 07:41 BP 133/79 05/19/23 07:41 Pulse Ox 95 05/19/23 07:41 Laboratory Results - last 24 hr 05/18/23 05/19/23 05/19/23 16:15 07:50 07:50 WBC 11.86 H RBC 5.21 Hgb 15.5 Hct 44.2 MCV 85 MCH 29.8 MCHC 35.1 RDW 12.8 Plt Count 309 MPV 10.2 Immature Gran % 0.3 Neutrophils % 56.0 Lymphocytes % 30.3 Monocytes % 6.8 Eosinophils % 5.8 Basophils % 0.8 Nucleated RBC % 0.0 Absolute Neutrophils 6.64 Absolute Lymphocytes 3.59 H Absolute Monocytes 0.81 H Absolute Eosinophils 0.69 Absolute Basophils 0.09 Sodium 138 Potassium 4.0 Chloride 102 Carbon Dioxide 24.0 Anion Gap 12.0 H BUN 11 Creatinine 1.0 Est GFR (CKD-EPI 2020) 109.13 Glucose 120 H Calcium 9.5 Magnesium 2.1 C-Reactive Protein 0.43 H MRSA (TEM-PCR) Negative PAWSS Pt Consumed Any Amount of Alcohol Within the Last 30 days OR had positive SAIMA Upon Admission: No Time Spent with Patient Time Spent with Patient: 35-49 minutes Time was spent: preparing to see the patient(eg.review tests), obtaining and/or reviewing separately otained hiistory, ordering medications,tests, procedures, referring, communicating with other health attending ambulatory care, indepentently interpreting results, counseling the patient and care coordination
--- NOTE | 2023-05-19 10:11 | PDOC.CMPRO ---
Date of service: 05/19/23 Time of Service: 10:11 Care Management Progress Note Progress Note Text Progress Note Text: S/O: Zeeshan was lying in bed when CM met with him, and his mother, who was in the room visiting. Zeeshan stated that he is feeling better today, and that the swelling in his face has gone down a lot. His mother stated that yesterday she could not see his eyes, and today she can, so she is pleased with the progress. Zeeshan is independent and does not anticipate needing any services upon discharge. CM will continue to follow. A: Zeeshan is a 23 year old male admitted to [facility] on 05/17/23 with bilateral periorbital cellulitis. P: Zeeshan continues to be closely monitored and remains on IV ABX, anticipate he will remain at [facility] for the next 3-5 days for treatment, while antibiotic therapy and treatment plan is determined. CM continues to follow.
[2023-05-19 10:49] LABS: Lab Add On Test DONE
[2023-05-19 11:02] LABS: Creatine Kinase 57 U/L (39-308)
[2023-05-19] MEDS: cefTRIAXone 2 GM/50 ML BAG IVPB (11:31)
[2023-05-19 12:09] VITALS: BP 119/69; PULSE 61; RESP 18; TEMP 36.7; O2SAT 96
[2023-05-19 13:26] LABS: Lab Add On Test DONE
--- NOTE | 2023-05-19 13:34 | DM INPTCON_ITS ---
Date of service: 05/19/23 Time of Service: 13:34 Diabetes Inpatient Consult Reason for Visit: routine consult - diabetes education (preidabetes) DESCRIPTION/ASSESSMENT: Zeeshan is a 23yo male admitted with bilateral periorbital celulitis. His A1c value of 6.0% on 05/19 was indicative of prediabetes. Zeeshan reports he lives at home with his mother, who hs been managing diabetes for some time. He has observed her keeping track of her meals and counting carbohydrates, however, relays that he doesn't know that much about what he needs to do now. Zeeshan is ordered for a heart healthy, carbohydrate consistent diet order with normal consistencies. We reviewed this and how the dietary staff will work with alicia to try and keep his meals at ~65g CHO. We reviewed his estimated nutrition needs : 2180-2330kcals ([id number]- 250- 500kcals for wt loss), 134g protein (.8gper kg of adjusted body weight) I estimated that he should have 15-16 cho servings spread out through the day (225g CHO). INTERVENTION: I reviewed a suggested goal to work on menu planning with 3-4cho choices per meal and leave the rest for planned snacks. We used the scoop of mashed potatoes on his plate as reference to serving size of what to count as 1 cho/15g. I gave 2 supporting educational materials and reviewed the non-cho choices vs cho choices (grains, fruit, some dairy, and starchy veggies). Encouraged activity as he gets back to baseline at home and can get moving more again. PLAN: Zeeshan voiced understanding of the topics we covered however will need practice and additional education as reinforcement. I gave him my contact number and asked he call to schedule outpatient education appts to help with menu planning for good glycemic control and wt mgt. Time Spent in Nutritional Counseling and Treatment: 30 minutes
[2023-05-19 15:30] VITALS: BP 137/83; PULSE 64; RESP 18; TEMP 36.7; O2SAT 96
--- NOTE | 2023-05-19 15:44 | W.ORTHOCONSU ---
Date of service: 05/19/23 Time of Service: 15:44 History of Present Illness Narrative: Patient reports that itchy blisters started between his right ring and middle fingers approximately 2 days ago. He reports that blisters appeared between his fingers with no known wound or injury and were draining pus. Has been getting IV cephalexin and he reports that his hand has been improving. He reports that his has good motion of his fingers. Denies any numbness or tingling. Assessment and Plan Assessment and plan (1) Infection of right hand: Status: Acute Assessment and plan: 23-year-old male with resolving right hand infection, possibly due to impetigo Sores and blisters largely resolved, WBC and CRP only mildly elevated, x-rays with only minimal soft tissue abnormality, absolutely no signs or symptoms of an active or bad infection requiring surgery. Recommend basic wound/skin care: Keep this area between the middle and ring finger webspace dry with gauze, replace as needed, may secure with Kerlix. Reviewed with patient and his family. Also recommend elevation to minimize chance of swelling or discomfort and reviewed importance of regular hand, wrist, and finger range of motion prevent stiffness. No need for orthopedic follow-up. Please call if hand status changes. 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 Routine child health exam (Acute 05/02/12) Routine child health exam (Acute 06/21/16) Medical History 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 Macerated skin and small bumps in the webspace between the ring and middle fingers. Demonstrates active flexion and extension of all digits. No discomfort or hesitation on testing. No purulence, no erythema, no edema. Demonstrates abduction and adduction of all digits. Motor function of the median, radial, and ulnar nerves intact. Sensation intact to light touch in the median, radial, and ulnar nerve distributions. Results Last Vital Signs Temp 98.1 F 05/19/23 15:30 Pulse 64 05/19/23 15:30 Resp 18 05/19/23 15:30 BP 137/83 05/19/23 15:30 Pulse Ox 96 05/19/23 15:30 Labs 05/20/23 06:26 05/20/23 06:26 Labs: Laboratory Results - last 24 hr 05/18/23 05/19/23 05/19/23 16:15 07:50 07:50 WBC 11.86 H RBC 5.21 Hgb 15.5 Hct 44.2 MCV 85 MCH 29.8 MCHC 35.1 RDW 12.8 Plt Count 309 MPV 10.2 Immature Gran % 0.3 Neutrophils % 56.0 Lymphocytes % 30.3 Monocytes % 6.8 Eosinophils % 5.8 Basophils % 0.8 Nucleated RBC % 0.0 Absolute Neutrophils 6.64 Absolute Lymphocytes 3.59 H Absolute Monocytes 0.81 H Absolute Eosinophils 0.69 Absolute Basophils 0.09 Sodium 138 Potassium 4.0 Chloride 102 Carbon Dioxide 24.0 Anion Gap 12.0 H BUN 11 Creatinine 1.0 Est GFR (CKD-EPI 2020) 109.13 Glucose 120 H Hemoglobin A1c Calcium 9.5 Magnesium 2.1 Creatine Kinase C-Reactive Protein 0.43 H MRSA (TEM-PCR) Negative Add-On Test Request 05/19/23 05/19/23 05/19/23 07:50 07:50 07:50 WBC RBC Hgb Hct MCV MCH MCHC RDW Plt Count MPV Immature Gran % Neutrophils % Lymphocytes % Monocytes % Eosinophils % Basophils % Nucleated RBC % Absolute Neutrophils Absolute Lymphocytes Absolute Monocytes Absolute Eosinophils Absolute Basophils Sodium Potassium Chloride Carbon Dioxide Anion Gap BUN Creatinine Est GFR (CKD-EPI 2020) Glucose Hemoglobin A1c 6.0 H Calcium Magnesium Creatine Kinase 57 C-Reactive Protein MRSA (TEM-PCR) Add-On Test Request DONE 05/19/23 07:50 WBC RBC Hgb Hct MCV MCH MCHC RDW Plt Count MPV Immature Gran % Neutrophils % Lymphocytes % Monocytes % Eosinophils % Basophils % Nucleated RBC % Absolute Neutrophils Absolute Lymphocytes Absolute Monocytes Absolute Eosinophils Absolute Basophils Sodium Potassium Chloride Carbon Dioxide Anion Gap BUN Creatinine Est GFR (CKD-EPI 2020) Glucose Hemoglobin A1c Calcium Magnesium Creatine Kinase C-Reactive Protein MRSA (TEM-PCR) Add-On Test Request DONE
[2023-05-19 19:06] VITALS: BP 125/77; PULSE 73; RESP 16; TEMP 36.7; O2SAT 97
[2023-05-19 22:39] VITALS: BP 113/75; PULSE 74; RESP 16; TEMP 36.6; O2SAT 96
[2023-05-20 03:09] VITALS: BP 108/66; PULSE 70; RESP 16; TEMP 36.5; O2SAT 95
[2023-05-20 06:35] LABS: Lactate 1.5 mmol/L (0.6-1.4)
[2023-05-20 06:38] LABS: HCT 45.9 % (40.0-50.0); MCH 29.7 pg (27.0-33.0); MCHC 34.9 % (32.0-36.0); MCV 85 fL (80-95); MPV 10.2 fL (8.0-11.0); Platelet Count 319 10^3/uL (130-400); RBC 5.39 10^6/uL (4.36-5.78); RDW-SD 39.2 fL; WBC 10.89 10^3/uL (4.4-10.8)
[2023-05-20 07:08] LABS: Anion Gap 12.4 mmol/L (3-11); BUN 15 mg/dL (7-18); C-Reactive Protein 0.57 mg/dL (0.0-0.3); CO2 23.6 mmol/L (21.0-32.0); CREATININE 0.9 mg/dL (0.70-1.30); Calcium 9.9 mg/dL (8.5-10.1); Chloride 101 mmol/L (98-107); Estimated GFR 123.84 (mL/min/1.73m2); Glucose 110 mg/dL (74-106); Sodium 137 mmol/L (136-145)
[2023-05-20 07:59] LABS: Lab Add On Test DONE
[2023-05-20 08:39] LABS: ALT 135 U/L (16-63); AST 60 U/L (15-37); Albumin 3.7 g/dL (3.4-5.0); Alkaline Phosphatase 91 U/L (46-116); Bilirubin, Direct 0.1 mg/dL (0.0-0.2); Bilirubin, Total 0.5 mg/dL (0.2-1.0); Total Protein 7.8 g/dL (6.4-8.2)
[2023-05-20 09:07] VITALS: BP 102/51; PULSE 69; RESP 18; TEMP 35.8; O2SAT 95
--- NOTE | 2023-05-20 09:49 | PGE_ITS ---
Date of Service Date of service: 05/20/23 Time of Service: 09:49 Assessment and Plan Assessment and plan (1) Preseptal cellulitis of left eye: Status: Acute Assessment and plan: Continue Ceftriaxone 2gm IV every 24 hours and Zyvox 600 mg IV every 12 hours started on 05/17; will continue treatment for at least 3 to five days and adjust as per micro results. Zyvox stopped on 05/19 -Criteria for oral therapy are normothermia, and resolution of clinical symptoms. -Consideration given to the minimal duration of antibiotherapy for chronic sinusitis for a minimum of 7 days -Probiotic added to treatment plan The patient has groub B strep growing from the wound culture on his hand: Discussed with pharmacy and Dr. Tripp-Anitbiotic stewardship with increased inflammatory markers Will investigate for abscess formation and complication such as diarrhea: stool for C-Diff ordered Refered to outpatient ENT follow up We will continue pain management with acetaminophen 650 mg every 4 hours as needed WBC is 10.89 from 11.86, CRP 0.57 from 0.43, procalcitonin 0.1 on 05/18, we will keep monitoring inflammatory markers Increased inflammation, redness, drainage and decreased ROM : Orthopedic consult with Dr. Harris ordered on 05/19 and patient seen and discussed with ortho: x-rays with only minimal soft tissue abnormality, absolutely no signs or symptoms of an active or bad infection requiring surgery -Recommendations - basic wound/skin care: Keep this area between the middle and ring finger webspace dry with gauze, replace as needed, may secure with Kerlix/ elevation to minimize chance of swelling or discomfort - regular hand, wrist, and finger range of motion prevent stiffness.? - No need for orthopedic follow-up unless status changes. Will also reach out if significant increased in CPR. CBC, CRP in AM BMP in AM (2) Preseptal cellulitis of right eye: Status: Acute Assessment and plan: As above (3) Sinusitis: Status: Acute Assessment and plan: Continue the same management As per CT scan ENT follow up as outpatient Antibiotics ordered as above (4) Lactic acidosis: Status: Acute Assessment and plan: Lactate 1.5 was 2.0 on 05/18, afebrile IVF completed for 1 liter, see hepatic inquiry in transaminitis section Antibiotics as above, blood cultures showed no growth in 48 hours (5) Transaminitis: Status: Acute Assessment and plan: Elevated LFT's: AST 60 was 49 & 54, ALT 135 116 125 & 116, will discontinue monitoring for no and recommend PCP follow-up Hepatitis studies added 05/[address] Tripp. Limited US of the RUQ of the abdomen completed 05/18, -Findings:Liver is hyperechoic indicating steatosis, no ascites; common hepatic duct appears dilated, measuring 9 mm at the level the araceli hepatis no visualization of lower CBD and pancreas because of overlying bowel gas. Will not follow further LFT's unless a change in the clinical picture occurs Rhabdomyolysis due to muscle fiber break down in the context for facial structures infection, could also drive the LFT's increase.Lactateis lower at 1.5 today CPK was 57 on 05/19 (6) Prediabetes: Status: Acute Assessment and plan: The patients morning fasting morning glucose > 100 to 125 A1C is 6.0, FBG >100-125 We will continue the diabetes consistent CHO diet Get a nutrition consult Get diabetic consult Education of lifestyle changes Follow-up with PCP on discharge (7) Discharge planning issues: Status: Acute Assessment and plan: The patient is independent and does not seem to have any discharge need at this time. Care management will monitor for change in need for discharge. Will probably stay for another 24 to 48 hours if clinical picture still improving. Nutrition and diabetic consults as inpatient and outpatient follow-up with PCP and ENT The patient has minimal risk for DVT DVT prophylaxis is not indicated Subjective Subjective Interval history since last seen: The patient is in bed comfortable, mother at bedside, slept well and ate well. The patient denies chills, night sweats, facial pain or discomfort, nasal or occular discharge, nausea, abdominal pain diarrhea today or dysuria. The patient reports increased mobility to his right hand and no pain. .The patient reports being able to open both eyes, residual swelling to lower lids and no change in vision.The patient was made aware of the treatment plan and agrees. Exam Const General: cooperative and no acute distress Nutritional Appearance: obese Orientation: alert, awake and oriented x3 HENMT Head: normal to inspection and normocephalic Face and sinus: erythema bilaterally periorbital (decreased), mandible (healing), lower lip (healing) and chin (healing) and edema bilaterally periorbital Eyes General: dysmorphic (bilateral swelling and rash, improved) Alignment and Position: alignment normal Periorbital: periorbital findings abnormal bilaterally periorbital swelling and periorbital erythema Eyelids: eyelid abnormality (bilateral swelling ) right upper eyelid, right lower eyelid, left upper eyelid and left lower eyelid Conjunctivae: conjunctivae normal (not hemorrhagic,difficulty assessing) Sclera: sclerae normal (difficulty opening the eyes) EOM: EOM intact bilaterally Neck Neck: normal visual inspection Chest Chest: normal inspection of the chest Resp Effort & Inspection: normal respiratory effort Auscultation: clear to auscultation bilaterally Cardio Rhythm: regular rhythm Heart Sounds: S1 normal and S2 normal Pulses: radial pulses present and dorsalis pedis present GI Inspection: obesity Palpation: soft and nontender Skin Lesions: lesion noted (bilateral periorbital, right chin, left nostril healing rash and lesions) Rashes: rashes noted (bilateral periorbital, right chin, left nostril healing) Neuro General: patient alert, patient oriented x3 and no focal motor deficits Cognition: normal cognition Speech: speech normal Extrem General: normal to inspection and no pedal edema Right upper extremity: hand (Right hand: intact ROM, can make a fist, no pain, decreased swelling) Details: other (lesion between3 rd and 4th digit, decreased pain, swelling, serous drainage) Psych Appearance: grossly normal Mental Status: mental status grossly normal Speech and Movement: speech and movement normal Mood: congruent mood Affect: normal affect Attitude: cooperative Thought Process: normal Insight: fair Judgment: fair Objective Last Vital Signs Temp 35.8 C L 05/20/23 09:07 Pulse 69 05/20/23 09:07 Resp 18 05/20/23 09:07 BP 102/51 L 05/20/23 09:07 Pulse Ox 95 05/20/23 09:07 Laboratory Results - last 24 hr 05/19/23 05/19/23 05/19/23 07:50 07:50 07:50 WBC RBC Hgb Hct MCV MCH MCHC RDW Plt Count MPV VBG Lactate Sodium Potassium Chloride Carbon Dioxide Anion Gap BUN Creatinine Est GFR (CKD-EPI 2020) Glucose Hemoglobin A1c 6.0 H Calcium Total Bilirubin Conjugated Bilirubin AST ALT Alkaline Phosphatase Creatine Kinase 57 C-Reactive Protein Total Protein Albumin Add-On Test Request DONE 05/19/23 05/20/23 05/20/23 07:50 06:26 06:26 WBC 10.89 H RBC 5.39 Hgb 16.0 Hct 45.9 MCV 85 MCH 29.7 MCHC 34.9 RDW 13.0 Plt Count 319 MPV 10.2 VBG Lactate Sodium 137 Potassium 4.0 Chloride 101 Carbon Dioxide 23.6 Anion Gap 12.4 H BUN 15 Creatinine 0.9 Est GFR (CKD-EPI 2020) 123.84 Glucose 110 H Hemoglobin A1c Calcium 9.9 Total Bilirubin Conjugated Bilirubin AST ALT Alkaline Phosphatase Creatine Kinase C-Reactive Protein 0.57 H Total Protein Albumin Add-On Test Request DONE 05/20/23 05/20/23 05/20/23 06:26 06:26 06:26 WBC RBC Hgb Hct MCV MCH MCHC RDW Plt Count MPV VBG Lactate 1.5 H Sodium Potassium Chloride Carbon Dioxide Anion Gap BUN Creatinine Est GFR (CKD-EPI 2020) Glucose Hemoglobin A1c Calcium Total Bilirubin 0.5 Conjugated Bilirubin 0.1 AST 60 H ALT 135 H Alkaline Phosphatase 91 Creatine Kinase C-Reactive Protein Total Protein 7.8 Albumin 3.7 Add-On Test Request DONE PAW Pt Consumed Any Amount of Alcohol Within the Last 30 days OR had positive SAIMA Upon Admission: No Time Spent with Patient Time Spent with Patient: 35-49 minutes Time was spent: preparing to see the patient(eg.review tests), obtaining and/or reviewing separately otained hiistory, ordering medications,tests, procedures, referring, communicating with other health family day care worker, indepentently interpreting results, counseling the patient and care coordination
--- NOTE | 2023-05-20 10:36 | CMPROGNOTE_ITS ---
Date of service: 05/20/23 Time of Service: 10:36 Care Management Progress Note Progress Note Text Progress Note Text: S/O: Zeeshan was lying in bed when CM met with him. He reported that he is feeling better, and thinks that the swelling in his face has reduced. He stated that per MD, he may be ready to return home as early as tomorrow. He is happy about this plan, and is looking forward to returning home. CM will continue to follow. A: Zeeshan is a 23 year old male admitted to [facility] on 05/17/23 for bilateral periorbital cellulitis. P: Zeeshan continues to be closely monitored and remains on IV ABX, anticipate he will remain at [facility] for the next 3-5 days for treatment, while antibiotic therapy and treatment plan is determined. CM continues to follow.
[2023-05-20] MEDS: cefTRIAXone 2 GM/50 ML BAG IVPB (12:35)
[2023-05-20 14:44] VITALS: BP 134/83; PULSE 82; RESP 18; TEMP 36.7; O2SAT 98
[2023-05-20 19:36] LABS: C Diff PCR Negative (Negative)
[2023-05-20 22:55] VITALS: BP 133/80; PULSE 72; RESP 16; TEMP 36; O2SAT 94
[2023-05-21 06:43] VITALS: BP 117/77; PULSE 80; RESP 16; TEMP 36.2; O2SAT 95
[2023-05-21 07:28] LABS: HCT 45.7 % (40.0-50.0); HGB 15.9 g/dL (13.5-17.5); MCH 29.5 pg (27.0-33.0); MCHC 34.8 % (32.0-36.0); MCV 85 fL (80-95); MPV 10.3 fL (8.0-11.0); Platelet Count 334 10^3/uL (130-400); RBC 5.39 10^6/uL (4.36-5.78); RDW 12.8 % (11.8-14.1); RDW-SD 38.9 fL; WBC 11.99 10^3/uL (4.4-10.8)
[2023-05-21 07:39] LABS: Anion Gap 10.5 mmol/L (3-11); BUN 16 mg/dL (7-18); CO2 25.5 mmol/L (21.0-32.0); CREATININE 0.9 mg/dL (0.70-1.30); Calcium 9.8 mg/dL (8.5-10.1); Chloride 100 mmol/L (98-107); Estimated GFR 123.84 (mL/min/1.73m2); Glucose 107 mg/dL (74-106); Potassium 3.5 mmol/L (3.5-5.1); Sodium 136 mmol/L (136-145)
[2023-05-21 07:42] LABS: C-Reactive Protein 0.68 mg/dL (0.0-0.3)
--- NOTE | 2023-05-21 09:32 | PGE_ITS ---
Date of Service Date of service: 05/21/23 Time of Service: 09:32 Assessment and Plan Assessment and plan (1) Preseptal cellulitis of left eye: Status: Acute Assessment and plan: Continue Ceftriaxone 2gm IV every 24 hours and Zyvox 600 mg IV every 12 hours started on 05/17; will continue treatment for at least 3 to five days and adjust as per micro results. Zyvox stopped on 05/19 -Criteria for oral therapy are normothermia, and resolution of clinical symptoms. -Consideration given to the minimal duration of antibiotherapy for chronic sinusitis for a minimum of 7 days -Probiotic added to treatment plan The patient has groub B strep growing from the wound culture on his hand: Discussed with pharmacy and Dr. Tripp-Anitbiotic stewardship with increased inflammatory markers Will investigate for abscess formation and complication such as diarrhea: stool for C-Diff ordered Refered to outpatient ENT follow up We will continue pain management with acetaminophen 650 mg every 4 hours as needed WBC is now 11.99 from 10.89, 11.86; lowest at 9.9, CRP 0.68 from 0.43 can be due to DM II an other , procalcitonin 0.1 on 05/18, we will keep monitoring inflammatory markers Increased inflammation, redness, drainage and decreased ROM : Orthopedic consult with Dr. Harris ordered on 05/19 and patient seen and discussed with ortho: x-rays with only minimal soft tissue abnormality, absolutely no signs or symptoms of an active or bad infection requiring surgery -Recommendations - basic wound/skin care: Keep this area between the middle and ring finger webspace dry with gauze, replace as needed, may secure with Kerlix/ elevation to minimize chance of swelling or discomfort - regular hand, wrist, and finger range of motion prevent stiffness.? - No need for orthopedic follow-up unless status changes. Will also reach out if significant increased in CPR. CBC, CRP in AM BMP in AM (2) Preseptal cellulitis of right eye: Status: Acute Assessment and plan: As above (3) Sinusitis: Status: Acute Assessment and plan: Continue the same management As per CT scan ENT follow up as outpatient Antibiotics ordered as above (4) Lactic acidosis: Status: Acute Assessment and plan: Lactate 1.5 was 2.0 on 05/18, afebrile IVF completed for 1 liter, see hepatic inquiry in transaminitis section Antibiotics as above, blood cultures showed no growth in 48 hours (5) Transaminitis: Status: Acute Assessment and plan: Elevated LFT's: AST 60 was 49 & 54, ALT 135 116 125 & 116, will discontinue monitoring for no and recommend PCP follow-up Hepatitis studies added 05/[address] Tripp. Limited US of the RUQ of the abdomen completed 05/18, -Findings:Liver is hyperechoic indicating steatosis, no ascites; common hepatic duct appears dilated, measuring 9 mm at the level the araceli hepatis no visualization of lower CBD and pancreas because of overlying bowel gas. Will not follow further LFT's unless a change in the clinical picture occurs Rhabdomyolysis due to muscle fiber break down in the context for facial structures infection, could also drive the LFT's increase.Lactateis lower at 1. 5 today CPK was 57 on 05/19 (6) Prediabetes: Status: Acute Assessment and plan: The patients morning fasting morning glucose > 100 to 125 A1C is 6.0, FBG >100-125 We will continue the diabetes consistent CHO diet Get a nutrition consult Get diabetic consult Education of lifestyle changes Follow-up with PCP on discharge (7) Discharge planning issues: Status: Acute Assessment and plan: The patient is independent and does not seem to have any discharge need at this time. Care management will monitor for change in need for discharge. Will probably stay for another 24 to 48 hours if clinical picture still improving. Nutrition and diabetic consults as inpatient and outpatient follow-up with PCP and ENT The patient has minimal risk for DVT DVT prophylaxis is not indicated Objective Last Vital Signs Temp 36.2 C L 05/21/23 06:43 Pulse 80 05/21/23 06:43 Resp 16 05/21/23 06:43 BP 117/77 05/21/23 06:43 Pulse Ox 95 05/21/23 06:43 Laboratory Results - last 24 hr 05/20/23 05/21/23 05/21/23 17:56 06:20 06:20 WBC RBC Hgb Hct MCV MCH MCHC RDW Plt Count MPV Sodium 136 Potassium 3.5 Chloride 100 Carbon Dioxide 25.5 Anion Gap 10.5 BUN 16 Creatinine 0.9 Est GFR (CKD-EPI 2020) 123.84 Glucose 107 H Calcium 9.8 C-Reactive Protein 0.68 H Stl C.difficile Tox PCR Negative 05/21/23 06:20 WBC 11.99 H RBC 5.39 Hgb 15.9 Hct 45.7 MCV 85 MCH 29.5 MCHC 34.8 RDW 12.8 Plt Count 334 MPV 10.3 Sodium Potassium Chloride Carbon Dioxide Anion Gap BUN Creatinine Est GFR (CKD-EPI 2020) Glucose Calcium C-Reactive Protein Stl C.difficile Tox PCR PAWSS Pt Consumed Any Amount of Alcohol Within the Last 30 days OR had positive SAIMA Upon Admission: No
[2023-05-21 09:38] LABS: Lab Add On Test COMPLETED
[2023-05-21 09:40] LABS: Abs Immature Grans 0.03 10^3/uL (0.0-0.06); Absolute Eosinophil Count 0.64 10^3/uL (0.0-0.7); Absolute Lymphocyte Count 4.36 10^3/uL (1.2-3.4); Absolute Monocyte Count 0.74 10^3/uL (0.1-0.8); Absolute Neutrophil Count 6.52 10^3/uL (1.2-6.7); Basophils % 0.8; Eosinophils % 5.2; Immature Grans % 0.2; Lymphocytes % 35.2; Neutrophils % 52.6
[2023-05-21] MEDS: Amoxicillin 875/Clav. 125 TAB PO (11:47)
--- NOTE | 2023-05-21 12:57 | W.PM.DS.N ---
Date of service: 05/21/23 Time of Service: 12:58 DS: Diagnosis Discharge Diagnosis (1) Preseptal cellulitis of left eye: Status: Acute (2) Preseptal cellulitis of right eye: Status: Acute (3) Sinusitis: Status: Acute (4) Lactic acidosis: Status: Acute (5) Transaminitis: Status: Acute (6) Prediabetes: Status: Acute (7) Discharge planning issues: Status: Acute Discharge Plan Disposition Patient Disposition: Home Condition: Fair Discharge Details Reason For Visit: Bilateral Periorbital Cellulitis Admit Date/Time: 05/17/23 11:59 Admit Provider: Helen Tripp Attending Provider: Helen Tripp Primary Care Provider: Roxana Jacobsen Hospital Course Hospital Course: This 23 yo male with a history of childhood left ?facial herpetic lesion 10 years ago, facial cellulitis 2 years ago and impetigo to the left nostril treated with bactroban and oral doxycycline 2 days ago presented to the ED at [facility] on 05/17 with bilateral periorbital swelling and rash to his face. In the ED, the patient was unable to open his eyes and had a lesion to his right hand between the 3rd ?and 4th digit which was swabbed and came back positive for gram positive namrata, gram positive cocci and gram negative rods. Blood culture was drawn. The?CT of the head and face showed no acute intracranial process, bilateral soft tissue swelling. No abscess, gas collection, or intra-orbital abnormality seen?but shows severe chronic sinus disease was noted. WBC was 11.26; chemistry was unremarkable except for lactate 1.8 and increased LFT's. He denied fever, headache, pain,?difficulty breathing, nausea, vomiting, and chest pain. He reported blurred vision in his right eyes that is completely closed. The patient received IV clindamycin and oral Bactrim as well as?methylprednisolone IV in the ED. The hospitalist consulted by the ED provider, and the patient was admitted to the medical surgical floor as an inpatient for treatment and management of bilateral periorbital cellulitis. During the stay, the patient received Ceftriaxone IV and linezolid IV for broad coverage. The wound culture specified that the pathogen as Group B streptococcus, a MRSA PCR result came back negative. We stopped Linezolid and kept Ceftriaxone IV. The patient also display an increased in lactate peaking at 2.2 then to 1.5, a minimally elevated CRP- 0.38 to 0.68 as his clinical picture improved. The patient had mild transaminitis with AST and Alt peaking at 60 and 135 respectively; liver ultrasound showed a slightly prominent hyperechoic liver with steatosis; dilated common bile duct at 9 mm. The patient hemoglobin A1C was 6.0 with fasting blood glucose over 100-125.Diabetic and nutrition consults were ordered for pre-diabetes. The patient right hand showed increased swelling redness and stiffness, the lesion between the 3rd and 4rth digit demonstrated increased drainage and maceration of tissues. An orthopedic consult was placed, and there were no signs or symptoms of an active or bad infection requiring surgery as per Dr. Harris. Today, the leukocytosis remains stable there is no fever or chills and periorbital/ pre-septal swelling is minimal. The patient is clinically improved and is ready to be discharge on Augmentin 875-125 mg oral twice a day for 10 days. The first dose administered in hospital was well tolerated. The patient will follow up with PCP and ENT upon discharge within 7 to [address] Fang Home Meds and New Rx's Prescriptions: New amoxicillin-pot clavulanate 875-125 mg Tablet 1 tab PO BID 10 Days Qty: 19 0RF Discontinued doxycycline hyclate 100 mg Capsule 100 mg PO BID mupirocin 2 % Ointment 1 applic TOPICAL DAILY Discharge Instructions Instructions: Cellulitis (ED) Additional Instructions: Take the amoxicillin-clavulanate for the full 10 day-course. If a rash, or pruritus develops, STOP the medicine and return to the ED. Follow up with primary care provider in within a week. Follow- up with ENT Dr. Mendes within 7-10 days Return to ED sooner if any worsening or concerns. Increase oral fluids. Consume diet with probiotics and limited concentrated sugars. Stand Alone Forms: Nursing Discharge Form, Work Release Referrals: Moose Mendes MD [ [facility] STAFF PHYSICIAN] - (Bilateral preseptal/ periorbital cellulitis with chronic sinus disease as per head CT) Roxana Jacobsen PA [Primary Care Provider] - 2 days Activity:: Activity as Tolerated Equipment/Supplies:: No Equipment Needed Diet:: Normal Diet Discharge Orders Discharge Orders: Discharge Order (Routine); Ordered 05/21/23 Ordered By: Gwendolyn Velez DS: Summary Time Spent with Patient providing and/or coordinating discharge services: Greater than 30 minutes Status at Discharge Functional status at discharge: independent ambulation Overall status at discharge: patient is progressing back to baseline Mental Status: mental status grossly normal Speech and Movement: speech and movement normal Mood: congruent mood Affect: normal affect Exam Const General: cooperative, comfortable and no acute distress Nutritional Appearance: obese Orientation: alert, awake and oriented x3 HENMT Head: normal to inspection and normocephalic Face and sinus: erythema bilaterally periorbital (minimal), mandible (healing) and lower lip (minimal scabs) and edema bilaterally periorbital Eyes General: dysmorphic (bilateral swelling and rash are minimal) Alignment and Position: alignment normal Periorbital: periorbital findings abnormal bilaterally periorbital swelling (resolving) and periorbital erythema (resolving) Eyelids: eyelid abnormality (bilateral swelling ) right upper eyelid, right lower eyelid, left upper eyelid and left lower eyelid Conjunctivae: conjunctivae normal (not hemorrhagic,difficulty assessing) Sclera: sclerae normal (difficulty opening the eyes) EOM: EOM intact bilaterally Neck Neck: normal visual inspection Chest Chest: normal inspection of the chest Resp Effort & Inspection: normal respiratory effort Auscultation: clear to auscultation bilaterally Cardio Rhythm: regular rhythm Heart Sounds: S1 normal and S2 normal Pulses: radial pulses present and dorsalis pedis present GI Inspection: normal to inspection and obesity Palpation: soft and nontender Skin Lesions: lesion noted (bilateral periorbital, right chin, left nostril healed rash and lesions ) Rashes: rashes noted (bilateral periorbital is minimal) Neuro General: patient alert, patient oriented x3 and no focal motor deficits Cognition: normal cognition Speech: speech normal Extrem General: normal to inspection and no pedal edema Right upper extremity: hand (Right hand: intact ROM, can make a fist, no pain, decreased swelling) Details: other (lesion between3 rd and 4th digit, drying, minimal serous drainage) Psych Appearance: grossly normal Mental Status: mental status grossly normal Speech and Movement: speech and movement normal Mood: congruent mood Affect: normal affect Attitude: cooperative Thought Process: normal Insight: fair Judgment: fair DS: Data Vitals/I&O Vitals and I&O: Vital Signs Temperature 36.2 C L 05/21/23 06:43 Temperature Source Tympanic 05/21/23 06:43 Pulse 80 05/21/23 06:43 Pulse Rhythm Regular 05/21/23 10:00 Pulse 90 05/17/23 14:50 Respiratory Rate 16 05/21/23 06:43 Respiratory Effort Normal, Non-Labored 05/21/23 10:00 Respiratory Depth Normal 05/21/23 10:00 Respiratory Pattern Normal 05/21/23 10:00 Blood Pressure 117/77 05/21/23 06:43 Blood Pressure Mean 86 05/17/23 15:00 Blood Pressure Position Sitting 05/17/23 08:01 Pulse Oximetry 95 05/21/23 06:43 Oxygen Delivery Method Room Air 05/21/23 06:43 Oxygen Flow Rate 0 05/21/23 06:43 Pain Level 0 05/20/23 22:55 Comment spoke to RN about bp 05/20/23 09:07 Intake & Output 05/20/23 05/21/23 05/21/23 23:59 11:59 23:59 Intake Total 50 / 600 300 / 300 Balance 50 / 600 300 / 300 Intake: IV 50 / 100 Oral 300 / 300 Other: Urine Appearance Clear Clear Comment pt voids independently in the toilet pt is able to void independently in the toilet. Stool Size Moderate Stool Characteristics Soft Black Voiding Methods Toilet Toilet Data Completed and Pending Labs on day of discharge: Labs from last 24 hours 05/21/23 05/21/23 05/21/23 09:37 06:20 06:20 WBC 11.99 H RBC 5.39 Hgb 15.9 Hct 45.7 MCV 85 MCH 29.5 MCHC 34.8 RDW 12.8 Plt Count 334 MPV 10.3 Immature Gran % 0.2 Neutrophils % 52.6 Lymphocytes % 35.2 Monocytes % 6.0 Eosinophils % 5.2 Basophils % 0.8 Nucleated RBC % 0.0 Absolute Neutrophils 6.52 Absolute Lymphocytes 4.36 H Absolute Monocytes 0.74 Absolute Eosinophils 0.64 Absolute Basophils 0.10 Sodium 136 Potassium 3.5 Chloride 100 Carbon Dioxide 25.5 Anion Gap 10.5 BUN 16 Creatinine 0.9 Est GFR (CKD-EPI 2020) 123.84 Glucose 107 H Calcium 9.8 C-Reactive Protein Stl C.difficile Tox PCR Add-On Test Request COMPLETED 05/21/23 05/20/23 06:20 17:56 WBC RBC Hgb Hct MCV MCH MCHC RDW Plt Count MPV Immature Gran % Neutrophils % Lymphocytes % Monocytes % Eosinophils % Basophils % Nucleated RBC % Absolute Neutrophils Absolute Lymphocytes Absolute Monocytes Absolute Eosinophils Absolute Basophils Sodium Potassium Chloride Carbon Dioxide Anion Gap BUN Creatinine Est GFR (CKD-EPI 2020) Glucose Calcium C-Reactive Protein 0.68 H Stl C.difficile Tox PCR Negative Add-On Test Request Preliminary micro results at discharge 05/17/23 08:45 Blood Culture - Preliminary Blood NO GROWTH 96 HOURS 05/17/23 08:36 Blood Culture - Preliminary Blood NO GROWTH 96 HOURS 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 Routine child health exam (Acute 05/02/12) Routine child health exam (Acute 06/21/16) Medical History 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 Time Spent with Patient Time Spent with Patient: <45 minutes (40) Time was spent: preparing to see the patient(eg.review tests), ordering medications,tests, procedures, referring, communicating with other health managed care specialist, indepentently interpreting results, counseling the patient and care coordination
[2023-05-21 15:25] VITALS: BP 126/83; PULSE 75; RESP 18; TEMP 36.6; O2SAT 95
--- NOTE | 2023-05-22 07:49 | PDOC.CMDIS ---
Date of service: 05/22/23 Time of Service: 07:49 LACE Index Scoring Tool Questions: Length of Stay (in days): 3 Was the patient admitted via the E.D.?: Yes E.D. Visits: 0 Answers: Total Score: 6 Risk of Readmission: Low Risk Care Management Discharge Plan Reason for Hospitalization: Bilateral periorbital cellulitis Discharge Plan: Zeeshan will return home with no additional services. He will follow up with his PCP and plan of care as prescribed, and transport via private vehicle with family. Patient/Family Education Needs: Review discharge instructions, discuss Ask Me Three.
[2023-05-23 12:47] LABS: ESR (LRH) 7 mm/hr
== END 2023-05-21 16:43 | disposition home or self-care (01) | DRG 603 ==
LOC: ER 11:50 → MS 15:17
PROVIDERS: Nurse Practitioner Acute Care; Admitting Provider Internal Medicine; Emergency Provider Registered Nurse Emergency; PCP Physician Assistant Medical; Visit Provider Internal Medicine
DX: L03.213 Periorbital cellulitis (principal); E87.20 Acidosis, unspecified; R74.01 Elevation of levels of liver transaminase levels; R73.03 Prediabetes; B95.1 Streptococcus, group B, as the cause of diseases classified elsewhere; J01.80 Other acute sinusitis; D72.829 Elevated white blood cell count, unspecified; A46 Erysipelas; F41.9 Anxiety disorder, unspecified
CPT/HCPCS: 36415; 80048; 80053; 80076; 82550; 84145; 85027; 85652; 87040; 87077; 87493; 87635; 87641; 96365; 96367; 96376; 99285; 70470; 70482; 73130; 76705; 81003; 83036; 83605; 83735; 85025; 86140; 87070; 87205; 99223; 99232; 99239; J2020